=== PATIENT | male | born 1960 | race Caucasian/White ===

== ENCOUNTER 2017-07-05 14:33 | Emergency (ER) | payer SELFPAY ==
[~2017-07-05] VITALS: Ht 180.3 cm; Wt 88.0 kg
[2017-07-05 16:08] VITALS: BP 119/56
[2017-07-05] MEDS ORDERED: KETOROLAC TROMETH 60MG/2ML VIAL IM ONE (16:30)
== END 2017-07-05 17:01 | disposition home or self-care (01) ==
LOC: ER 14:33
DX: G89.29 Other chronic pain (principal); M54.5 Low back pain; Z76.0 Encounter for issue of repeat prescription; Z88.6 Allergy status to analgesic agent; Z88.8 Allergy status to other drugs, medicaments and biological substances; F17.210 Nicotine dependence, cigarettes, uncomplicated
CPT/HCPCS: 96372; 99283; J1885